=== PATIENT | female | born 1960 | race Caucasian/White ===

== ENCOUNTER → 2022-09-18 10:53 | Outpatient (CLI) | payer BC, SELFPAY ==
--- NOTE | 2022-09-18 10:57 | MR_ITS ---
FINAL REPORT CLINICAL HISTORY: DIZZINESS AND GIDDINESS FINDINGS: Multiplanar MR imaging of the brain was performed without contrast. There are scattered foci of increased T2 signal in the cerebral white matter that have a nonspecific appearance but likely represent mild chronic ischemic/gliotic changes. There is no evidence of intracranial hemorrhage or mass. No abnormal ventricular dilatation is identified. No abnormal extra-axial fluid collection is seen. No abnormality is seen on the diffusion weighted images. The posterior fossa and brainstem are unremarkable. Normal major vessel vascular flow voids are seen. IMPRESSION: Mild chronic ischemic/gliotic changes. No acute intracranial abnormality. Reviewed, Interpreted and Dictated by Maxi Dickerson III, MD Transcribed by Rebecca Palma Authenticated and [facility]
== END ==
LOC: RAD 10:54
PROVIDERS: PCP Nurse Practitioner Family; Visit Provider Nurse Practitioner Family
DX: R42 Dizziness and giddiness (principal)
CPT/HCPCS: 70551